=== PATIENT | male | born 1940 | race Caucasian/White ===

== ENCOUNTER 2024-07-20 15:06 | Observation (INO) ==
[2024-07-20 17:36] LABS: ABS Basophils 0.1 10^3/uL (0.0-0.1); ABS Eosinophils 0.1 10^3/uL (0.0-0.5); ABS Monocytes 0.5 10^3/uL (0.0-1.1); ABS Neutrophils 11.1 10^3/uL (1.5-7.6); Eosinophil % 0.7 %; Hematocrit 43.3 % (38-53); Hemoglobin 14.3 g/dL (13.2-16.3); Lymphocyte % 8.2 %; Mean Corpuscular Hemoglobin 32.4 pg (27-33); Mean Corpuscular Hgb Conc 32.9 g/dL (31-36); Mean Corpuscular Volume 98.4 fL (80-97); Platelet Count 313 10^3/uL (150-450); Red Cell Distribution Width 14.9 % (12-17); White Blood Count 12.8 10^3/uL (3.6-10.2)
[2024-07-20 18:07] LABS: Albumin 3.8 g/dL (3.5-5.7); Albumin/Globulin Ratio 1.1 (1-3); C Reactive Protein 90.22 mg/L (<8.01); Creatinine, Serum 2.61 mg/dL (0.67-1.17); Globulin 3.4 g/dL (2-4); Potassium 4.9 mmol/L (3.5-5.0); Total Bilirubin 0.5 mg/dL (0.2-1.0); Total Protein 7.2 g/dL (6.4-8.9); eGFR CKD-EPI 23.8 (>60)
[2024-07-20] MEDS: Lactated Ringers 1000 ml BAG 1,000 ML IV ONE (19:04)
[2024-07-20] MEDS: Acetaminophen IV 1 GM/100ML 1,000 MG/100 ML BAG IV ONE (19:48)
[2024-07-20 19:58] LABS: Erythrocyte Sed Rate 105 mm/Hr (0-19)
[2024-07-20] MEDS ORDERED: Albuterol 2.5mg/3 ml (0.083%) NEB.SOLN INH PRN (21:48)
[2024-07-20] MEDS ORDERED: Dextrose 50% Syringe 50 ml 25 GM/50 ML SYRINGE IV PUSH PRN (22:53)
[2024-07-20] MEDS: Carbidopa/Levodop 25/100 MG TAB PO SCH (23:04)
[2024-07-20] MEDS: Mometasone/Formoter 200/5 MDI INH SCH (23:30)
[2024-07-21 00:22] LABS: Ur Squamous Epithelial No Cx Present /HPF (Absent); Urine Appearance No Cx Clear (Clear); Urine Bacteria No Culture Absent /HPF (Absent); Urine Bilirubin No Culture Negative (Negative); Urine Blood No Culture Negative (Negative); Urine Color No Culture Light-Yellow; Urine Glucose No Culture 4+ (>=1000 mg/dL) (Negative); Urine Ketones No Culture Negative (Negative); Urine Leukocytes No Culture Negative Leu/uL (Negative); Urine Nitrite No Culture Negative (Negative); Urine Protein No Culture Negative (Negative); Urine Red Blood Cell No Cult Absent /HPF (0-Trace); Urine Urobilinogen No Cx Negative (Negative); Urine White Blood Cell No Cult 1+(6-10/hpf) /HPF (0-Trace)
[2024-07-21] MEDS: cefTRIAXone 1 gm/50 mL D5W 1 GM/50 ML BAG IV SCH (02:15)
[2024-07-21] MEDS: Lactated Ringers 1000 ml BAG 1,000 ML IV SCH (02:53)
[2024-07-21 06:22] LABS: ABS Lymphocytes 0.6 10^3/uL (1.0-4.8); ABS Monocytes 0.1 10^3/uL (0.0-1.1); ABS Neutrophils 10.4 10^3/uL (1.5-7.6); Hematocrit 37.8 % (38-53); Hemoglobin 12.7 g/dL (13.2-16.3); Lymphocyte % 5.1 %; Mean Corpuscular Hemoglobin 32.7 pg (27-33); Mean Corpuscular Hgb Conc 33.5 g/dL (31-36); Mean Corpuscular Volume 97.6 fL (80-97); Mean Platelet Volume 8.6 fL (7.5-11.2); Platelet Count 263 10^3/uL (150-450); Red Blood Count 3.87 10^6/uL (4.06-5.63)
[2024-07-21 07:25] LABS: Albumin 3.1 g/dL (3.5-5.7); Calcium 8.8 mg/dL (8.6-10.3); Creatinine, Serum 2.1 mg/dL (0.67-1.17); Total Bilirubin 0.5 mg/dL (0.2-1.0); Total Protein 6.1 g/dL (6.4-8.9); eGFR CKD-EPI 30.8 (>60)
[2024-07-21] MEDS: Empagliflozin 25 MG TAB PO SCH (08:32)
[2024-07-21] MEDS: Insulin GLARGINE 100 un/ml 10 ml VIAL SUBCUT SCH (08:32)
[2024-07-21] MEDS: Memantine XR 14 mg CAP PO SCH (08:33)
[2024-07-21 15:21] LABS: Magnesium 2.2 mg/dL (1.9-2.7)
[2024-07-21] MEDS: Magnesium Sulfate IV 1GM/100ML 1 GM/100 ML BAG IV ONE (16:39)
[2024-07-21] MEDS: Heparin 5000 UNITS/ML 1 mL VIAL SUBCUT SCH (21:24)
[2024-07-22 06:55] LABS: ABS Lymphocytes 0.8 10^3/uL (1.0-4.8); ABS Monocytes 0.2 10^3/uL (0.0-1.1); ABS Neutrophils 12.1 10^3/uL (1.5-7.6); ABS Nucleated RBC 0.01 10^3/ul; Hematocrit 37.5 % (38-53); Hemoglobin 12.1 g/dL (13.2-16.3); Lymphocyte % 6.4 %; Mean Corpuscular Hemoglobin 31.6 pg (27-33); Mean Corpuscular Hgb Conc 32.3 g/dL (31-36); Mean Corpuscular Volume 97.6 fL (80-97); Mean Platelet Volume 8.7 fL (7.5-11.2); Nucleated Red Blood Cells % 0.1 %/100WBC (0.0-0.8); Platelet Count 287 10^3/uL (150-450); Red Blood Count 3.84 10^6/uL (4.06-5.63); Red Cell Distribution Width 15.1 % (12-17); White Blood Count 13.2 10^3/uL (3.6-10.2)
[2024-07-22 07:15] LABS: Albumin 3.1 g/dL (3.5-5.7); Albumin/Globulin Ratio 1.1 (1-3); Creatinine, Serum 1.88 mg/dL (0.67-1.17); Globulin 2.8 g/dL (2-4); Magnesium 2.4 mg/dL (1.9-2.7); Potassium 4.9 mmol/L (3.5-5.0); Total Bilirubin 0.4 mg/dL (0.2-1.0); Total Protein 5.9 g/dL (6.4-8.9); eGFR CKD-EPI 35.2 (>60)
[2024-07-22] MEDS: Aspirin EC 81 mg TAB.EC (enteric coated) PO SCH (08:55)
[2024-07-22 13:32] VITALS: BP 124/87
[2024-07-24 09:34] LABS: Anaplasma phagocytophilum Negative (Negative); B. miyamotoi PCR, B Negative (Negative); Babesia divergens/MO-1 Negative (Negative); Babesia ducani Negative (Negative); Ehrlichia chaffeensis Negative (Negative); Ehrlichia ewingii/canis Negative (Negative); Ehrlichia muris eauclairensis Negative (Negative)
== END 2024-07-22 14:45 | disposition home or self-care (01) ==
LOC: EDHOLD 15:06 → ED 15:06 → SUATTDRO 21:37 → MED 07-21 00:50
PROVIDERS: ADMIT Internal Medicine; ATTEND Student in an Organized Health Care Education/Training Program